=== PATIENT | female | born 1980 | race Caucasian/White ===

== ENCOUNTER → 2019-03-18 | Outpatient (CLI) | payer OTHER ==
[~2019-03-18] MED LIST: DOCU-131 PO; HYDR-3240 PO; IBUP-1222 PO
== END | disposition home or self-care (01) ==
LOC: CVU 14:22
PROVIDERS: ATTEND Physician Assistant
DX: R25.2 Cramp and spasm (principal)
CPT/HCPCS: 93922

== ENCOUNTER 2020-11-06 19:23 | Emergency (ER) | payer OTHER ==
[~2020-11-06] VITALS: Ht 152.4 cm; Wt 58.6 kg
[2020-11-06 20:45] LABS: BASOPHILS % (AUTO) 1 % (0-1); EOSINOPHILS % (AUTO) 5 % (1-7); LYMPHOCYTES % (AUTO) 33 % (22-44); MEAN CORPUSCULAR HGB CONC 34.4 g/dL (32.4-35.8); MEAN PLATELET VOLUME 8.3 fL (7.4-10.4); MONOCYTES % (AUTO) 7 % (2-9); NEUTROPHILS % (AUTO) 56 % (42-75); PLATELET COUNT 283 x10^3/uL (130-400); RED BLOOD COUNT 4.73 x10^6/uL (3.82-5.3); RED CELL DISTRIBUTION WIDTH 12.6 % (9.6-15.2)
[2020-11-06 20:55] LABS: MD NO
[2020-11-06 21:00] LABS: ALANINE AMINOTRANSFERASE 19 U/L (12-78); ALBUMIN 3.4 g/dL (3.4-5.0); ANION GAP 4 mmol/L (5-15); CALCIUM 8.7 mg/dL (8.5-10.1); CHLORIDE 107 mmol/L (98-107); CREATININE 1.06 mg/dL (0.55-1.02)
[2020-11-06 21:02] LABS: ALKALINE PHOSPHATASE 59 U/L (45-117); BILIRUBIN,TOTAL 0.2 mg/dL (0.2-1.0); TOTAL PROTEIN 7.6 g/dL (6.4-8.2)
[2020-11-06] MEDS ORDERED: ACETAMINOPHEN 500 MG TABLET PO ONE (21:30)
[2020-11-06] MEDS ORDERED: IBUPROFEN 600 MG TABLET ONE (21:34)
[2020-11-06] MEDS ORDERED: ACETAMINOPHEN 500 MG TABLET ONE (21:34)
[2020-11-06 21:59] LABS: FREE T4 (FREE THYROXINE) 1.01 ng/dL (0.76-1.46)
[2020-11-06] MEDS ORDERED: IBUPROFEN 200 MG TABLET PO ONE (22:00)
[2020-11-06 22:04] LABS: HCG UR SG 1.011 (1.003-1.030); MICROSCOPIC NOT IND
[2020-11-06 22:49] VITALS: BP 117/65
--- NOTE | 2020-11-06 22:49 | NUR ---
COVID swab collected and walked to lab.
== END 2020-11-06 22:50 | disposition home or self-care (01) ==
LOC: ED 21:32
DX: G44.219 Episodic tension-type headache, not intractable (principal); Z20.828 Contact with and (suspected) exposure to other viral communicable diseases; B34.9 Viral infection, unspecified; R50.9 Fever, unspecified; J02.9 Acute pharyngitis, unspecified
CPT/HCPCS: 36415; 71045; 80053; 81003; 81025; 84439; 84443; 85025; 86308; 87635; 99284

== ENCOUNTER 2021-01-27 13:59 | Outpatient (CLI) | payer OTHER ==
[~2021-01-27 13:59] MED LIST changes: +HYDR-1067 PO; -HYDR-3240 PO
== END 2021-01-27 23:59 | disposition home or self-care (01) ==
LOC: STAR 13:59
PROVIDERS: ATTEND Otolaryngology
DX: Z20.822 Contact with and (suspected) exposure to COVID-19 (principal); J35.01 Chronic tonsillitis
CPT/HCPCS: U0003

== ENCOUNTER 2021-02-02 06:26 | Day surgery (SDC) | payer OTHER ==
[~2021-02-02] VITALS: Ht 152.4 cm; Wt 57.0 kg
[2021-02-02] MEDS ORDERED: LACTATED RINGERS 1,000 ML IV SCH (07:30)
[2021-02-02] MEDS ORDERED: LIDOCAINE-MPF 1%, 2ML INFIL ONE (07:30)
[2021-02-02] MEDS ORDERED: CHLORHEXIDINE 15 ML UDC MM ONE (07:30)
[2021-02-02 07:38] LABS: HCG UR SG 1.017 (1.003-1.030)
[2021-02-02 07:52] VITALS: BP 107/74
[2021-02-02] MEDS ORDERED: SILVER NITRATE STICK TP ONE (08:00)
[2021-02-02] MEDS ORDERED: MIDAZOLAM 1 MG/ML, 2ML ONE (08:10)
[2021-02-02] MEDS ORDERED: FENTANYL PF 250 MCG/5ML ONE (08:12)
[2021-02-02] MEDS ORDERED: DEXAMETHASONE 4 MG/ML, 1ML ONE ×3 (08:12)
[2021-02-02] MEDS ORDERED: OXYC5TAB2 PO (08:16)
[2021-02-02] MEDS ORDERED: SENN-99 PO (08:16)
[2021-02-02] MEDS ORDERED: ACET325T14 PO (08:16)
[2021-02-02] MEDS ORDERED: IBUP-11 PO (08:16)
[2021-02-02] MEDS ORDERED: DIAZEPAM 5 MG/ML, 2ML IVPush PRN (08:30)
[2021-02-02] MEDS ORDERED: PROMETHAZINE 12.5 MG SUPP PR PRN (08:30)
[2021-02-02] MEDS ORDERED: ACETAMINOPHEN 325 MG TABLET PO PRN (08:30)
[2021-02-02] MEDS ORDERED: PROMETHAZINE 25 MG/ML, 1ML IVPush PRN (08:30)
[2021-02-02] MEDS ORDERED: OXYcodone 5 MG/5 ML ORAL.SOL UDC PO PRN (08:30)
[2021-02-02] MEDS ORDERED: FENTANYL PF 100 MCG/2ML IV PRN (08:30)
[2021-02-02] MEDS ORDERED: LABETALOL 5MG/ML, 20ML IV PRN (08:30)
[2021-02-02] MEDS ORDERED: MEPERIDINE/PF 25MG/0.5ML IVPush PRN (08:30)
[2021-02-02] MEDS ORDERED: HYDROmorphone 1 MG/ML, 1ML INJ IVPush PRN (08:30)
[2021-02-02] MEDS ORDERED: EPHEDRINE 50 MG/ML, 1ML IVPush PRN (08:30)
[2021-02-02] MEDS ORDERED: ONDANSETRON 2MG/ML, 2ML IVPush PRN (08:30)
[2021-02-02] MEDS ORDERED: hydrALAzine 20 MG/ML, 1ML IV PRN (08:30)
[2021-02-02] MEDS ORDERED: MIDAZOLAM 1 MG/ML, 2ML IV PRN (08:30)
[2021-02-02] MEDS ORDERED: DIPHENHYDRAMINE 50 MG/ML, 1ML IVPush PRN ×2 (08:30)
[2021-02-02] MEDS ORDERED: ALBUTEROL SULFATE 2.5 MG/3 ML NPPB PRN (08:30)
[2021-02-02] MEDS ORDERED: SUCCINYLCHOLINE 20 MG/ML, 10ML ONE (08:31)
[2021-02-02] MEDS ORDERED: ONDANSETRON 2MG/ML, 2ML ONE (08:31)
[2021-02-02] MEDS ORDERED: PROPOFOL 10 MG/ML, 20ML ONE (08:31)
[2021-02-02] MEDS ORDERED: ROCURONIUM 10MG/ML,5ML ONE (08:31)
[2021-02-02] MEDS ORDERED: ONDA-89 PO (08:54)
[2021-02-02] MEDS ORDERED: ACETAMINOPHEN 650 MG/20.3 ML UDC ONE (09:12)
[2021-02-02] MEDS ORDERED: FENTANYL PF 100 MCG/2ML ONE (09:12)
[2021-02-02] MEDS ORDERED: OXYcodone 5 MG/5 ML ORAL.SOL UDC ONE (09:13)
[2021-02-02] MEDS ORDERED: IBUPROFEN 600 MG TABLET PO ONE (11:00)
== END 2021-02-02 10:55 | disposition home or self-care (01) ==
LOC: OUT 06:26
PROVIDERS: ATTEND Otolaryngology
DX: J35.01 Chronic tonsillitis (principal); J03.90 Acute tonsillitis, unspecified; J35.8 Other chronic diseases of tonsils and adenoids; R19.6 Halitosis; H90.3 Sensorineural hearing loss, bilateral; Z79.899 Other long term (current) drug therapy; Z82.2 Family history of deafness and hearing loss
CPT/HCPCS: 42826; 81025; 88304; J0330; J1100; J2250; J2405; J2704; J3010; J7120

== ENCOUNTER → 2021-04-27 | Outpatient (CLI) | payer OTHER ==
[~2021-04-27] MED LIST changes: +ACET325T14 PO; -HYDR-1067 PO; +HYDR-2214 PO; +IBUP-11 PO; +ONDA-89 PO; +OXYC5TAB2 PO; +SENN-99 PO
== END | disposition home or self-care (01) ==
LOC: CFH 13:38
PROVIDERS: ATTEND Nurse Practitioner Family
DX: Z12.31 Encounter for screening mammogram for malignant neoplasm of breast (principal); N60.02 Solitary cyst of left breast; N60.01 Solitary cyst of right breast; N64.89 Other specified disorders of breast
CPT/HCPCS: 76641; 77067